=== PATIENT | female | born 1990 | race Two or more races ===

== ENCOUNTER 2024-04-13 16:18 | Emergency (ER) | payer MEDICAID, SELFPAY ==
[2024-04-13 16:35] VITALS: BP 125/77; PULSE 98; RESP 18; TEMP 36.9; O2SAT 99; BMI 30.2
--- NOTE | 2024-04-13 16:44 | XR_ITS ---
Examination: PA lateral chest 2 views Technique: Upright PA lateral chest 2 views Exam date and time: April 13, 2024 1730 hrs. Indications: Chest pain coughing shortness of breath beginning 2 days ago. Findings: Scar formation versus mild pneumonia lingular segment left upper lobe Normal heart size Right lung clear Intact osseous structures Impression: Scar formation versus mild pneumonia lingular segment left upper lobe, clinical correlation advised
[2024-04-13] MEDS: DEXAMETHASONE SOD PHOS INJ 10 MG/ML VIAL PO (16:53)
[2024-04-13] MEDS: ALBUTEROL/IPRATROPIUM (Duoneb) RT SOL 3 ML NEBU INH (17:34)
[2024-04-13 17:36] VITALS: PULSE 101; RESP 18; O2SAT 99
--- NOTE | 2024-04-13 18:07 | EDNOTE_ITS ---
ED SOB =RME/HPI General Chief Complaint: Shortness of Breath/Dyspnea Stated Complaint: chest tightening, sob Time Seen by Provider: 04/13/24 16:32 Arrival date/time: 04/13/24 16:18 34-year-old female with history of asthma presents to the emergency department complains of cough, congestion, wheezing patient reports symptoms ongoing for last couple of days Limitations: no limitations Related Data Previous Rx's ?Medication ?Instructions ?Recorded albuterol sulfate 90 mcg/actuation 2 puff inhalation Q6H PRN 08/10/19 aerosol inhaler (Ventolin HFA) shortness of breath or wheezing #8.5 grams acetaminophen 500 mg capsule 1,000 mg (2 x 500 mg) PO Q8HR PRN 09/01/19 pain #60 caps naproxen 500 mg tablet (Naprosyn) 500 mg PO BID PRN pain #30 tabs 02/06/22 naproxen 500 mg tablet 500 mg PO BID PRN pain #30 tabs 10/23/23 albuterol sulfate 90 mcg/actuation 2 puff inhalation Q6H PRN 04/13/24 aerosol inhaler (Ventolin HFA) shortness of breath or wheezing #8.5 grams benzonatate 100 mg capsule 100 mg PO TID #14 caps 04/13/24 prednisone 10 mg tablet 30 mg (3 x 10 mg) PO BID 3 days 04/13/24 #18 tabs Allergies Allergy/AdvReac Type Severity Reaction Status Date / Time No Known Allergies Allergy Verified 04/13/24 16:19 Review of Systems Review of Systems Systems Reviewed: All systems reviewed, normal except as documented Constitutional Constitutional: Reports system reviewed and no additional complaints, except as documented, Denies fever(s) and Denies headache(s) Eyes Eyes: Reports system reviewed and no additional complaints, except as documented and Denies blurry vision ENT Ears, Nose, Mouth, and Throat: Reports system reviewed and no additional complaints, except as documented, Denies headache(s), Denies nasal congestion an d Denies nasal discharge Cardiovascular Cardiovascular: Reports system reviewed and no additional complaints, except as documented, Denies chest pain and Denies dyspnea Respiratory Respiratory: Reports system reviewed and no additional complaints, except as documented, Reports chest congestion, Reports cough, Denies dyspnea and Reports wheezing Gastrointestinal Gastrointestinal: Reports system reviewed and no additional complaints, except as documented and Denies abdominal pain Integumentary/Breasts Skin/Breast: Reports system reviewed and no additional complaints, except as documented and Denies rash Neurologic Neurologic: Reports system reviewed and no additional complaints, except as documented, Reports as per HPI and Denies headache(s) Allergic/Immunologic Allergic/Immunologic: Reports wheezing Past Medical History Past Medical History CARDIAC: Negative Congestive Heart Failure RESPIRATORY: Positive Asthma; Negative Chronic Obstructive Pulmonary Disease (COPD) GENITOURINARY: Negative Renal Disease ENDOCRINE: Negative Diabetes Mellitus Type 1 or Diabetes Mellitus Type 2 PSYCHO/SOCIAL: Positive Schizophrenia and Depression Social History SMOKING STATUS: Current every day smoker SUBSTANCE USE: methamphetamine ED Exam General Limitations: Present no limitations General appearance: Present alert and in no apparent distress Head Head exam: Present atraumatic Eye Eye exam: Present normal appearance, PERRL and EOMI; Absent conjunctival injection ENT ENT exam: Present normal exam, normal oropharynx and mucous membranes moist Neck Neck exam: Present normal inspection, full ROM and trachea midline Chest Chest inspection: Present normal inspection and symmetric chest wall rise Respiratory Respiratory exam: Present wheezes; Absent respiratory distress, stridor, accessory muscle use or prolonged expiratory phase Cardiovascular Cardiovascular exam: Present regular rate, normal rhythm and normal heart sounds Abdominal Exam Abdominal exam: Present soft and normal bowel sounds Extremities Exam Extremities exam: Present normal inspection and full ROM Back Exam Back exam: Present normal inspection and full ROM Neurological Exam Neurological exam: Present alert, oriented X3 and CN II-XII intact Psychiatric Psychiatric exam: Present normal affect and normal mood Skin Skin exam: Present warm, dry, intact and normal color Course Quality Measures none Orders Category Date Time Status Bedside COVID-19 Antigen Test NOW Care 04/13/24 16:44 Completed Bedside Influenza A&B Antigen Test NOW Care 04/13/24 16:44 Completed XR chest 2V Stat Exams 04/13/24 16:44 Completed Albuterol/Ipratr Rt Reyna [Duoneb Rt Reyna] Med 04/13/24 16:44 Discontinued 3 ml INH X1 ONE Dexamethasone Inj [Decadron Inj] Med 04/13/24 16:44 Discontinued 10 mg PO X1 ONE Vital Signs Vital signs: Vital Signs Temperature 98.5 F 04/13/24 16:35 Pulse Rate 98 04/13/24 16:35 Respiratory Rate 18 04/13/24 16:35 Blood Pressure 125/77 04/13/24 16:35 Pulse Oximetry (%) 99 04/13/24 16:35 Oxygen Delivery Method Room Air 04/13/24 16:35 O2 saturation 99% room air within normal limits Shortness of Breath / Dyspnea MDM Narrative MDM Narrative:: 34-year-old female with history of asthma presents to the emergency department complains of cough, congestion, wheezing patient reports symptoms ongoing for last couple of days On exam patient has bilateral upper lobe wheezing Patient given breathing treatment as well as steroids Patient checked for flu and COVID both which are negative Chest x-ray obtained no acute pneumonic infiltrates noted After breathing treatment patient reports she feels better Patient discharged home in no distress to follow-up with primary care doctor in the next 24 to 48 hours and for any worsening symptoms to return to the ER immediately Patient data External records reviewed:: [facility] previous records Clinical information provided by:: patient Social determinants that could affect healthcare access:: housing Patient has the following chronic illnesses:: Asthma How is presenting disease/condition affected by chronic disease/condition?: caused by Evaluation data The following diagnostics were reviewed and interpreted by me:: lab results and radiology exam(s) Lab and/or radiology exams considered but not ordered:: Labs and radiology obtained Interpretation Summary: Reviewed by me Medications / Prescriptions Medications or Prescriptions considered but not ordered:: Given Medication administrations:: Medication Administration History Discontinued Medications Albuterol/Ipratropium (Albuterol/Ipratropium (Duoneb) Rt Reyna 3 Ml Nebu) 3 ml INH X1 ONE Stop: 04/13/24 16:45 Last Admin: 04/13/24 17:34 Dose: 3 ml Documented By: RG Dexamethasone Sodium Phosphate (Dexamethasone Sod Phos Inj 10 Mg/Ml Vial) 10 mg PO X1 ONE Stop: 04/13/24 16:45 Last Admin: 04/13/24 16:53 Dose: 10 mg Documented By: OA Given Consultations Consultation(s) initiated? (list below): No Diagnosis Shortness of Breath Differential Diagnosis: acute exacerbation of chronic obstructive airways disease, community acquired pneumonia, asthma with exacerbation and pulmonary embolism Most likely diagnosis given after review of the tests above:: Asthma Admission Indicated Admission indicated?: not indicated Admission Request Was there a request for admission?: No Disposition Plan Disposition Plan: Discharge Discharge Attestation Discharge Attestation: The patient and all family members were given an opportunity to ask questions and understood the discharge instructions. Discharge instructions specifically effects, indications for sooner follow up or return to the emergency department, and the expected course of current diagnosis. Patient condition: Stable Discharge Plan Plan Patient Disposition: HOME (Self Care) Disposition Comment: Stable Prescriptions/Referrals Prescriptions/Med Rec: New albuterol sulfate [Ventolin HFA] 90 mcg/actuation HFA aerosol inhaler 2 puff inhalation Q6H PRN (Reason: shortness of breath or wheezing) Qty: 8.5 0RF prednisone 10 mg tablet 30 mg PO BID 3 Days Qty: 18 0RF benzonatate 100 mg capsule 100 mg PO TID Qty: 14 0RF No Action acetaminophen 500 mg capsule 1,000 mg PO Q8HR PRN (Reason: pain) Qty: 60 0RF albuterol sulfate [Ventolin HFA] 90 mcg/actuation HFA aerosol inhaler 2 puff INH Q6H PRN (Reason: shortness of breath or wheezing) Qty: 8.5 0RF naproxen 500 mg tablet 500 mg PO BID PRN (Reason: pain) Qty: 30 0RF naproxen [Naprosyn] 500 mg tablet 500 mg PO BID PRN (Reason: pain) Qty: 30 0RF Problem List Clinical Impression: Asthma exacerbation Patient/Caregiver Discharge Instructions Education Materials: Asthma Additional Instructions: Please follow up with your primary care doctor in the next 24-48hrs for any worsening symptoms return here immediately Print Language: Nepalese Stand Alone Forms: [employer]ez Award Info., Patient Portal Info Letter Attestation Attestation The patient was seen by the midlevel practitioner. I, the co-signing physician, was present during the entire ER visit. While I did not physically examine the patient, I was available for consultation as needed.
== END 2024-04-13 18:59 | disposition home or self-care (01) ==
LOC: SERX 18:13
PROVIDERS: Emergency Provider Emergency Medicine
DX: J45.901 Unspecified asthma with (acute) exacerbation (principal); F17.200 Nicotine dependence, unspecified, uncomplicated
CPT/HCPCS: 71046; 87400; 87811; 94640; 99283; A9270; J1100

== ENCOUNTER 2024-07-22 19:09 | Emergency (ER) | payer MEDICAID, SELFPAY ==
[2024-07-22 19:11] VITALS: BP 143/102; PULSE 64; RESP 13; O2SAT 100
--- NOTE | 2024-07-22 19:14 | PD.EDADULT ---
ED General RME/HPI General Chief complaint: Overdose Stated complaint: OVERDOSE Time Seen by Provider: 07/22/24 19:12 Arrival date/time: 07/22/24 19:09 RME / HPI RME / HPI narrative: 34-year-old female patient was brought in by EMS for fentanyl overdose. Apparently [place]. Patient was given Narcan for 4 mg IV with significant improvement of symptoms but after few seconds patient become unresponsive again. Another 4 mg Narcan given. Which completely reversed her overdose. Currently patient is awake, answers question appropriately. Patient admits to using fentanyl prior to the incidents. She told me that she feels nauseous. Denies any other complaints. Related Data Previous Rx's ?Medication ?Instructions ?Recorded albuterol sulfate 90 mcg/actuation 2 puff inhalation Q6H PRN 08/10/19 aerosol inhaler (Ventolin HFA) shortness of breath or wheezing #8.5 grams acetaminophen 500 mg capsule 1,000 mg (2 x 500 mg) PO Q8HR PRN 09/01/19 pain #60 caps naproxen 500 mg tablet (Naprosyn) 500 mg PO BID PRN pain #30 tabs 02/06/22 naproxen 500 mg tablet 500 mg PO BID PRN pain #30 tabs 10/23/23 albuterol sulfate 90 mcg/actuation 2 puff inhalation Q6H PRN 04/13/24 aerosol inhaler (Ventolin HFA) shortness of breath or wheezing #8.5 grams benzonatate 100 mg capsule 100 mg PO TID #14 caps 04/13/24 Allergies Allergy/AdvReac Type Severity Reaction Status Date / Time No Known Allergies Allergy Verified 04/13/24 16:19 Review of Systems Review of Systems Narrative Review of Systems: Review of system reviewed and within normal limits except mentioned in HPI ED Exam Narrative Physical exam: VITAL SIGNS: Reviewed. GENERAL APPEARANCE: Alert and interactive, follows commands, no acute distress, HEAD AND FACE: Non-traumatic. ENT: PERRL, pink conjunctivitis, eyelid no trauma, Mucous membrane moist. NECK: Supple, nontender, no nuchal rigidity. CHEST: No tenderness, no crepitus, no paradoxical movement, no retractions. LUNGS: Clear, well ventilated, symmetric, no rales, no wheezing, no ronchi, no stridor, good breath sounds bilaterally. HEART: Regular rate, regular rhythm, no murmur, no gallops. ABDOMEN: Soft, positive bowel sounds, nondistended, no guarding, nontender, no rebound, no masses, RECTAL: Deferred. GENITAL: Deferred. NEUROLOGICAL: Gross motor function intact sensory function intact, Appropriate for age. MUSCULOSKELETAL: low back nontender, full range of motion. EXTREMITIES: Nontender, full range of motion. SKIN: Color pink, dry, no rash, no lacerations, no abrasions, no contusions. LYMPHATICS: Deferred. Course Quality Measures none Orders Category Date Time Status Ondansetron Inj [Zofran Inj] Med 07/22/24 19:13 Discontinued 4 mg IV X1 ONE Sodium Chloride 0.9% 1000 ml [Ns] 1,000 ml Med 07/22/24 19:13 Discontinued IV 999 mls/hr Vital Signs Vital signs: Vital Signs Temperature 96.5 F L 07/22/24 19:17 Pulse Rate 99 07/22/24 19:17 Respiratory Rate 29 H 07/22/24 19:17 Blood Pressure 143/102 H 07/22/24 19:17 Pulse Oximetry (%) 100 07/22/24 19:17 Oxygen Delivery Method Room Air 07/22/24 19:17 [facility] Patient data External records reviewed:: None Clinical information provided by:: none Social determinants that could affect healthcare access:: none Patient has the following chronic illnesses:: Homelessness, fentanyl abuse How is presenting disease/condition affected by chronic disease/condition?: caused by Evaluation data The following diagnostics were reviewed and interpreted by me:: other (specify) Lab and/or radiology exams considered but not ordered:: None Interpretation Summary: None Medications Medications considered but not ordered:: None Medication administrations:: Medication Administration History Discontinued Medications Sodium Chloride (Ns) 1,000 mls @ 999 mls/hr IV .Q1H1M ONE Stop: 07/22/24 20:13 Last Admin: 07/22/24 20:13 Dose: 999 mls/hr Documented By: KG Ondansetron HCl (Ondansetron Inj 2 Mg/Ml Inj 2 Ml) 4 mg IV X1 ONE; Protocol Stop: 07/22/24 19:14 Last Admin: 07/22/24 20:11 Dose: 4 mg Documented By: KG IV fluids for hydration, and Zofran Consultations Consultation(s) initiated? (list below): No Diagnosis Differential Diagnosis ED Complaint MDM: Fentanyl overdose, homelessness, dehydration Most likely diagnosis given after review of the tests above:: Fentanyl overdose Admission Indicated Admission indicated?: not indicated Explain why admission is indicated or not indicated:: Stable Admission Request Was there a request for admission?: No Disposition Plan Disposition Plan: Discharge Discharge Attestation Discharge Attestation: The patient was given an opportunity to ask questions and understood the discharge instructions. Discharge instructions specifically effects, indications for sooner follow up or return to the emergency department, and the expected course of current diagnosis. Patient condition: Stable Medical Decision Making MDM Narrative MDM Narrative: 34-year-old female patient was brought in by EMS for fentanyl overdose. Apparently patient [place]. Patient was given Narcan for 4 mg IV with significant improvement of symptoms but after few seconds patient become unresponsive again. Another 4 mg Narcan given. Which completely reversed her overdose. Currently patient is awake, answers question appropriately. Patient admits to using fentanyl prior to the incidents. She told me that she feels nauseous. Denies any other complaints. Patient received Zofran and IV fluids for hydration. Patient was noted to be awake alert and talking normal Patient appears nontoxic and hemodynamically stable. Patient discharged home and instructed to follow-up with primary care provider in 24 to 48 hours. Instructed to return to the emergency department immediately if worsening of symptoms Differential Diagnosis Differential Diagnosis: Fentanyl overdose, homelessness, dehydration Discharge Plan Plan Patient Disposition: HOME (Self Care) Disposition Comment: Stable Prescriptions/Referrals Prescriptions/Med Rec: No Action acetaminophen 500 mg capsule 1,000 mg PO Q8HR PRN (Reason: pain) Qty: 60 0RF albuterol sulfate [Ventolin HFA] 90 mcg/actuation HFA aerosol inhaler 2 puff INH Q6H PRN (Reason: shortness of breath or wheezing) Qty: 8.5 0RF naproxen 500 mg tablet 500 mg PO BID PRN (Reason: pain) Qty: 30 0RF albuterol sulfate [Ventolin HFA] 90 mcg/actuation HFA aerosol inhaler 2 puff inhalation Q6H PRN (Reason: shortness of breath or wheezing) Qty: 8.5 0RF benzonatate 100 mg capsule 100 mg PO TID Qty: 14 0RF naproxen [Naprosyn] 500 mg tablet 500 mg PO BID PRN (Reason: pain) Qty: 30 0RF Referrals: No Primary/Family,Physician [Primary Care Provider] - In 1 week Problem List Clinical Impression: Overdose of fentanyl Patient/Caregiver Discharge Instructions Discharge Activity: activity as tolerated Education Materials: First Aid: Poisoning Additional Instructions: Thank you for the opportunity for serving you today. You are stable for discharged . You are advised to: Follow-up with your PCP in 1 to 2 days Return to ED for worsening of symptoms Increase oral fluids Please stop abusing fentanyl Print Language: Turkmen Stand Alone Forms: [employer]ez Award Info., Patient Portal Info Letter PA/WINDOW TRIMMER Supervising Physician PA/WINDOW TRIMMER Supervising Physician: MD Patience
[2024-07-22 19:17] VITALS: BP 143/102; PULSE 99; RESP 29; TEMP 35.8; O2SAT 100
[2024-07-22 20:00] VITALS: BP 110/82; PULSE 58; RESP 13; O2SAT 100
[2024-07-22] MEDS: ONDANSETRON INJ 2 MG/ML INJ 2 ML 4 MG IV (20:11)
[2024-07-22] MEDS: SODIUM CHLORIDE 0.9% 1000 ML 1,000 ML 999 ML IV (20:13)
[2024-07-22 20:18] VITALS: BMI 22.1
[2024-07-22 21:00] VITALS: BP 109/70; PULSE 61; RESP 9; O2SAT 100
[2024-07-22 22:00] VITALS: BP 101/62; PULSE 80; RESP 21; O2SAT 98
[2024-07-22 23:00] VITALS: BP 99/50; PULSE 76; RESP 20; O2SAT 96
[2024-07-23] VITALS: BP 100/60; PULSE 77; RESP 0; O2SAT 98
--- NOTE | 2024-07-23 00:37 | PC.NURSE ---
pt awake and alert. Denies suicidal intentions. pt eating .
[2024-07-23 01:19] VITALS: BP 128/88; PULSE 89; RESP 18; TEMP 36.8; O2SAT 99
== END 2024-07-23 01:22 | disposition home or self-care (01) ==
PROVIDERS: Emergency Provider Emergency Medicine
DX: T40.411A Poisoning by fentanyl or fentanyl analogs, accidental (unintentional), initial encounter (principal); R40.4 Transient alteration of awareness; F11.10 Opioid abuse, uncomplicated; Z59.01 Sheltered homelessness
CPT/HCPCS: 96361; 96374; 99284; J2405; J7030